=== PATIENT | female | born 1990 | race Caucasian/White ===

== ENCOUNTER 2017-06-05 03:11 | Inpatient (IN) | payer OTHER ==
[~2017-06-05] VITALS: Ht 162.6 cm; Wt 94.8 kg
[~2017-06-05 03:11] MED LIST: PREN1TAB69 PO
[2017-06-05] MEDS ORDERED: Hemorrhage Kit, Post Partum XX ONE (20:30)
[2017-06-05] MEDS ORDERED: Lactated Ringer's 1,000 ML IV PRN (20:30)
[2017-06-05] MEDS ORDERED: Methylergonovine 0.2 mg/mL Inj IM PRN (20:30)
[2017-06-05] MEDS ORDERED: Oxytocin 10 Unit/mL Inj IM PRN (20:30)
[2017-06-05] MEDS ORDERED: Penicillin G K Inj 5,000,000 UNITS in Dextrose 5% Minibag Plus 100 ML IV ONE (20:30)
[2017-06-05] MEDS ORDERED: Oxytocin 30 Units/500 mL LR 30 UNITS in IV Premix 1 EACH IV PRN (20:30)
[2017-06-05] MEDS ORDERED: Carboprost 250 mCg/mL Inj IM PRN (20:30)
[2017-06-05] MEDS ORDERED: Sodium Chloride LOK Flush 10 mL Syringe IVFLUSH PRN (20:30)
[2017-06-05 20:53] LABS: Mean Corpuscular Hemoglobin 31.6 pg (27.0-35.0); Mean Corpuscular Volume 88.7 fL (81-100)
[2017-06-06] MEDS ORDERED: Penicillin G K Inj 3,000,000 UNITS in IV Premix 1 EACH IV SCH (00:30)
--- NOTE | 2017-06-06 09:44 | PCM.OBVAG ---
Vaginal Delivery Date of Service Jun 06, 2017 Pre Operative Diagnosis Pre Operative Diagnosis 1.) Term gestation (40 2/7 weeks), 2.) diet-controlled GDM Post Operative Diagnosis Post Operative Diagnosis Term gestation, delivered Procedure Obstetical Procedure: Normal Spontaneous Vaginal Delivery, Repair of Perineal Tear (2nd degree (repaired in running fashion with 3-O Vicryl)) Grey Iron Molder/Wire Spiral Binder Provider and Wire Spiral Binder: Fabio Lauren MD Indication for Procedure Induction: Induction of labor (Cervidil induction for diet-controlled GDM at 40 2/7 weeks EGA), SROM, Other (membranes intact at time of delivery, with light meconium staining noted in fluid at delivery) Findings Obstetrical Findings: (Female), Cord (3 Vessel), Weight (6 lbs 14 oz), Presentation (Vertex), 1 minute (8), 5 minutes (9), Placenta (Intact/Normal), Perineal Laceration (2nd degree) Analgesia/Medications Procedural Analgesia: None Procedure Details Procedure Details Patient was approximately 10 1/2 hours into a Cervidil induction (started with exam of long/closed/high). She had been tyesha regularly and frequently and reported a sudden sensation of a large amount of lower pelvic pressure. Exam revealed that she was fully dilated and effaced, with a +2 station. She subsequently delivered via uncomplicated . Blood Loss & Administration Estimated Blood Loss: 300 Blood Admin during procedure: No Post Procedure Plan Post delivery Condition: Mom stable, Baby stable to nursery Fabio Lauren MD Jun 06, 2017 09:44
[2017-06-06] MEDS ORDERED: Witch Hazel-Glycerin Pads TOPICAL PRN (09:50)
[2017-06-06] MEDS ORDERED: Methylergonovine 0.2 mg/mL Inj IM PRN (09:50)
[2017-06-06] MEDS ORDERED: Carboprost 250 mCg/mL Inj IM PRN (09:50)
[2017-06-06] MEDS ORDERED: Benzocaine (Dermoplast) 20% 60 Gm Spray TOPICAL PRN (09:50)
[2017-06-06] MEDS ORDERED: Oxytocin 10 Unit/mL Inj IM PRN (09:50)
[2017-06-06] MEDS ORDERED: LANOlin HPA 7 Gm Ointment TOPICAL PRN (09:50)
[2017-06-06] MEDS ORDERED: Hemorrhage Kit, Post Partum XX ONE (09:50)
[2017-06-06] MEDS: Lactated Ringer's 1,000 ML IV SCH ×2 (11:15→17:46)
[2017-06-06] MEDS ORDERED: Measles-Mumps-Rubella Vaccine 0.5 mL Inj SUBQ ONE (15:00)
--- NOTE | 2017-06-07 13:37 | PCM.PNOBPP ---
Subjective Date of Service Jun 07, 2017 Post : Spontaneous Vaginal Delivery Visit History day 1. Subjective No complaints. Lochia: Normal Pain Management: PO pain meds, Good Pain Control Gastrointestinal: Good Appetite Postop Activity: Ambulating Independently Labs Laboratory Tests 06/05/17 20:00: White Blood Count 8.0, Red Blood Count 4.50, Hemoglobin 14.2, Hematocrit 39.9, Mean Corpuscular Volume 88.7, Mean Corpuscular Hemoglobin 31.6, Mean Corpuscular Hemoglobin Concent 35.6, Red Cell Distribution Width 13.3, Platelet Count 222 Exam Vital Signs Vital Signs: VS reviewed, stable Exam Abdomen: Uterus is (U-1), Fundus firm, Abdomen soft, Abdomen non-tender Perineum: Laceration : Voiding without difficulty Extremities: No cords Lungs: Clear to Auscultation, Normal Air Movement Heart: Normal S1, Normal S2, No Murmurs/Rubs/Gallops General: Alert, Oriented X3, Cooperative, No Acute Distress OB Post Assessment/Plan Problems: (1) normal course Status: Acute ICD Code: Z39.2 Pain Evaluation: Adequate Pain Control Post plan: Anticipate discharge home today Fabio Lauren MD Jun 07, 2017 13:37
--- NOTE | 2017-06-07 13:41 | PCM.DC.OB ---
Obstetrical Discharge Summary Date of Service Jun 07, 2017 Date of hospital admission Jun 05, 2017 at 19:09 Date of Discharge: Jun 07, 2017 Providers Admitting Physician: Fabio Lauren MD Primary Care Physician: Fabio Lauren MD Attending Physician: Fabio Lauren MD Problems: (1) normal course Status: Acute ICD Code: Z39.2 Brief History and Physical: 26yo admitted for elective induction at 40 2/7 weeks EGA, for GDM. Hospital Course: Progressed well with a single dose of Cervidil, delivering via uncomplicated prior to completion of the course of Cervidil. course was uncomplicated. Vit/Fe Fumarate/Fa-Expunged Drug, Do (-Expunged Drug, Do Not Renew!) 1 Each Tablet 1 EACH PO DAILY (Reported) Disposition Home Follow-up plan 6 weeks Discharge Diet: No restrictions Discharge Activity-General: Pelvic Rest for 6 weeks Fabio Lauren MD Jun 07, 2017 13:41
--- NOTE | 2017-06-07 15:00 | PCM.DIOB ---
Obstetrical Disch Instruction Date of Service: Jun 07, 2017 Dates of Hospitalization Date of Hospital Admission Jun 05, 2017 at 19:09 Providers Admitting Physician: Fabio Lauren MD Primary Care Physician: Fabio Lauren MD Attending Physician: Fabio Lauren MD Discharge Diagnosis Problems: (1) normal course Status: Resolved ICD Code: Z39.2 (2) Gestational diabetes mellitus (GDM) Qualifiers: Gestational diabetes mellitus control: diet-controlled Trimester: third trimester Qualified Code: O24.410 - Gestational diabetes mellitus in , diet controlled Status: Resolved ICD Code: O24.419 Diet Discharge Diet: No restrictions Activity Discharge Activity-General: Pelvic Rest for 6 weeks Dressing and Incisional Care Hygiene: May shower, Perineal care, Sitz bath, Dermoplast spray, Witch Leatha pads Follow Up Plan Follow-up Provider (F9): Fabio Lauren MD Follow-up appointment: Weeks (6) Call your provider for: Fever or Chills, Shortness of breath, Heavy vaginal bleeding, Epigastric pain, Excessive constipation, Vaginal discomfort, Red painful breasts Fabio Lauren MD Jun 07, 2017 15:00
[2017-06-07 17:00] VITALS: BP 120/63; PULSE 79; RESP 16
== END 2017-06-07 18:00 | disposition home or self-care (01) | DRG 775 ==
LOC: FBC 19:09
PROVIDERS: ADMIT Family Medicine; ATTEND Family Medicine
PROC: 3E0P7GC Introduction of Other Therapeutic Substance into Female Reproductive, Via Natural or Artificial Opening (ICD-10-PCS; 2017-06-05)
PROC: 10E0XZZ Delivery of Products of Conception, External Approach (ICD-10-PCS; principal; 2017-06-06)
PROC: 0KQM0ZZ Repair Perineum Muscle, Open Approach (ICD-10-PCS; 2017-06-06)
DX: O24.420 Gestational diabetes mellitus in childbirth, diet controlled (principal); O48.0 Post-term pregnancy; Z3A.40 40 weeks gestation of pregnancy; Z37.0 Single live birth; O70.1 Second degree perineal laceration during delivery; O77.0 Labor and delivery complicated by meconium in amniotic fluid